=== PATIENT | female | born 1960 | race Caucasian/White ===

== ENCOUNTER 2021-07-07 17:52 | Emergency (ER) | payer MEDICAID ==
[~2021-07-07] VITALS: Ht 167.6 cm; Wt 90.7 kg
--- NOTE | 2021-07-07 17:54 | NUR ---
Patient to ER bed 02 to gown for evaluation. Side rails up.
[2021-07-07 17:55] VITALS: BP_SYST 146
[2021-07-07] MEDS ORDERED: IBUPROFEN 800 MG TABLET PO ONE (18:30)
--- NOTE | 2021-07-07 18:39 | NUR ---
Pt being transported to [facility] via [facility]
--- NOTE | 2021-07-07 19:09 | NUR ---
patient AAOx4 and homeless biba c/o falling yesterday. patient c/o right shoulder, right knee, and right hip. patient stated she was walking in the dark and slipped on watery floor. lost her footing and fell. denies KO. no visible trauma noted.
--- NOTE | 2021-07-07 19:11 | NUR ---
report given to JALIL Yang.
--- NOTE | 2021-07-07 19:15 | NUR ---
REPORT RECIEVED FROM JESSY JIMENES REGARDING PT CARE. PT IN BED RESTING, NO ACUTE DISTRESS. WILL MONITOR NEEDED
[2021-07-07] MEDS ORDERED: IBUP-1969 PO (21:36)
[2021-07-07 22:57] VITALS: BP_SYST 165
--- NOTE | 2021-07-07 22:59 | NUR ---
Patient given written and verbal discharge instructions and verbalizes understanding. ER MD discussed with patient the results and treatment provided. Patient in stable condition. ID arm band removed. Rx of Ibuprofen given. Patient educated on pain management and to follow up with PMD. Pain Scale 2/10 Opportunity for questions provided and answered. Medication side effect fact sheet provided.
== END 2021-07-07 22:59 | disposition home or self-care (01) ==
LOC: SED 17:52
DX: S39.012A Strain of muscle, fascia and tendon of lower back, initial encounter (principal); S83.91XA Sprain of unspecified site of right knee, initial encounter; I10 Essential (primary) hypertension; J45.909 Unspecified asthma, uncomplicated; Z88.0 Allergy status to penicillin; Z79.899 Other long term (current) drug therapy; W18.39XA Other fall on same level, initial encounter; Y93.89 Activity, other specified; Y92.89 Other specified places as the place of occurrence of the external cause; Y99.8 Other external cause status
CPT/HCPCS: 72131; 72170-TC; 73564; 76376; 99284